=== PATIENT | female | born 2000 | race Caucasian/White ===

== ENCOUNTER 2022-09-10 16:21 | Emergency (ER) | payer SELFPAY ==
[~2022-09-10] VITALS: Ht 162.6 cm; Wt 75.0 kg
[2022-09-10 16:29] VITALS: BP 140/74
== END 2022-09-10 18:55 | disposition left against medical advice (07) ==
LOC: ER 16:21
DX: Z53.21 Procedure and treatment not carried out due to patient leaving prior to being seen by health care provider (principal)